=== PATIENT | male | born 1995 | race Two or more races ===

== ENCOUNTER 2023-04-17 08:09 | Emergency (ER) | payer BC, OTHER ==
[~2023-04-17] VITALS: Ht 172.7 cm; Wt 103.2 kg
[2023-04-17 08:24] VITALS: BP 133/91
== END 2023-04-17 09:50 | disposition home or self-care (01) ==
LOC: ER 08:09
DX: D18.01 Hemangioma of skin and subcutaneous tissue (principal)
CPT/HCPCS: 12001

== ENCOUNTER 2023-09-21 16:39 | Emergency (ER) | payer BC ==
[~2023-09-21] VITALS: Ht 172.7 cm; Wt 110.1 kg
[2023-09-21 22:02] VITALS: BP 118/92; PULSE 101; RESP 16; TEMP 98.6; O2SAT 96
== END 2023-09-21 22:11 | disposition home or self-care (01) ==
LOC: ER 16:39
DX: D18.09 Hemangioma of other sites (principal)
CPT/HCPCS: 73130